=== PATIENT | male | born 2000 | race Caucasian/White ===

== ENCOUNTER 2025-02-21 20:04 | Emergency (ER) | payer BC, SELFPAY ==
[2025-02-21] VITALS (7 sets, daily range): BP systolic 103–116; BP diastolic 52–63; PULSE 64–72; RESP 16–20; TEMP 36.6–37.3; O2SAT 97–100; BMI 27.1
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
[2025-02-21] MEDS: LIDOCAINE 2% UROJET 10ML TP (20:25)
[2025-02-21] MEDS: COCAINE 4% TOPICAL SOLN 4ML BOTTLE 1 ML TP (20:25)
[2025-02-21] MEDS: IBUPROFEN 400 MG TABLET 800 MG PO (20:26)
[2025-02-21] MEDS: ACETAMINOPHEN 500MG TAB 1000 MG PO (20:26)
[2025-02-21] MEDS: EPINEPHrine 1 MG/ML AMPUL TP (20:27)
[2025-02-21] MEDS: TET/DIPHTH/PERT-ADULT 0.5ML SYRINGE 0.5 ML IM (20:46)
== END 2025-02-21 22:08 | disposition home or self-care (01) ==
PROVIDERS: Emergency Provider Emergency Medicine
DX: S01.81XA Laceration without foreign body of other part of head, initial encounter (principal); V49.40XA Driver injured in collision with unspecified motor vehicles in traffic accident, initial encounter; Y92.410 Unspecified street and highway as the place of occurrence of the external cause; Z23 Encounter for immunization
CPT/HCPCS: 40654; 70450; 70486; 72125; 90471; 90715; 99285; J0171; J2004